=== PATIENT | male | born 1975 | race African-American/Black ===

== ENCOUNTER → 2018-05-25 | Outpatient (REF) | payer OTHER ==
[2018-05-25 10:39] LABS: SEMEN APPEARANCE OPAQUE (OPAQUE); SEMEN VISCOSITY LIQUID (LIQUID); SEMEN VOLUME 2.5 ML (4.0-5.0); SEMEN WBC <=1 M/ml (<=1 M/ml); SEMEN pH 8.5 (7.0-8.0)
[2018-05-25 10:40] LABS: #IMMOTILE SPERM COUNTED 0; #MOTILE SPERM COUNTED 0; % MOTILITY 0 (> 40%); SPERM CONCENTRATION 0 M/ml (> 15 M/ml); TOTAL # SPERM COUNTED 0 M/ml
== END ==
LOC: M LAB REF 09:54
DX: N46.9 Male infertility, unspecified (principal)